=== PATIENT | male | born 1950 | race Caucasian/White ===

== ENCOUNTER 2017-11-26 19:44 | Emergency (ER) | payer MEDICARE, OTHER ==
[~2017-11-26] VITALS: Ht 170.2 cm; Wt 72.6 kg
--- NOTE | 2017-11-26 19:47 | NUR ---
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 PATIENT RECEIVED ON POST ICTAL, RESPONDS TO PAIN. PATIENT ON O2 VIA NON REBREATHER. SKIN IS WARM TO TOUCH AND NON DIAPHORETIC. PATIENT IS AFEBRILE. VSS. CONNECTED PT TO TELE MONITOR. SEIZURE PRECAUTION IMPLEMENTED.PATIENT RECEIVED ATIVAN 2MG PO- PER FAMILY.VSS
[2017-11-26 20:11] LABS: BASOPHILS # (AUTO) 0.2 /CMM (0.0-0.2); BASOPHILS % (AUTO) 3.3 % (0.0-2.0); EOSINOPHILS % (AUTO) 4.1 % (0.0-6.0); HEMATOCRIT 45 % (39-51); HEMOGLOBIN 15.5 g/dL (13.5-17.5); LYMPHOCYTES # (AUTO) 1.6 /CMM (0.8-4.8); LYMPHOCYTES % (AUTO) 23.3 % (20.0-44.0); MEAN CORPUSCULAR HGB CONC 35 g/dl (31.0-36.0); MEAN CORPUSCULAR VOLUME 90 fL (80-96); MONOCYTES # (AUTO) 0.6 /CMM (0.1-1.30); MONOCYTES % (AUTO) 8.8 % (2.0-12.0); NEUTROPHILS # (AUTO) 4.1 /CMM (1.8-8.9); NEUTROPHILS % (AUTO) 60.5 % (43.0-81.0); PLATELET COUNT (AUTO) 184 /CMM (150-450); RDW COEFFICIENT OF VARIATION 13.3 (11.5-15.0); RED BLOOD CELL COUNT(AUTO) 4.97 MIL/uL (4.5-6.0); WHITE BLOOD COUNT (AUTO) 6.8 K/uL (4.3-11.0)
--- NOTE | 2017-11-26 20:14 | NUR ---
EKG IN PROGRSS
--- NOTE | 2017-11-26 20:17 | NUR ---
PATIENT TO CT
[2017-11-26 20:23] LABS: CALCIUM, SERUM 8.9 mg/dL (8.5-10.1); CREATININE 1.7 mg/dL (0.6-1.3); POTASSIUM 4.1 mmol/L (3.5-5.1)
[2017-11-26 20:29] LABS: ALBUMIN 3.8 g/dL (3.4-5.0); BILIRUBIN,DIRECT 0.1 mg/dL (0.0-0.2); BILIRUBIN,TOTAL 0.3 mg/dL (0.2-1.0); TOTAL PROTEIN, SERUM 7.2 g/dL (6.4-8.2)
--- NOTE | 2017-11-26 22:20 | NUR ---
CALLED [facility] FOR TRANSPORT BACK TO [facility], ETA 1245AM, TRIP #[id number]
--- NOTE | 2017-11-26 23:07 | NUR ---
MADE AWARE OF BLOOD PRESSURE [phone]
--- NOTE | 2017-11-26 23:07 | NUR ---
PATIENT'S FAMILY AT BEDSIDE. AWARE OF PLAN OF CARE
--- NOTE | 2017-11-26 23:09 | NUR ---
AWAITING FOR AMBULANCE. PT'S FAMILY AWARE
--- NOTE | 2017-11-26 23:17 | NUR ---
PATIENT NOTED WITH EPISODE OF SEIZURE. MD REAL MADE AWARE, PLACED PT ON O2, REMAINS CONNECTED TO TELE, SEIZURE PRECAUTION OBSERVED.
[2017-11-26] MEDS ORDERED: LORAZEPAM INJ 2 MG/ML VIAL ONE (23:18)
--- NOTE | 2017-11-26 23:19 | NUR ---
ATIVAN IV ORDERED BY MD BUNN
[2017-11-27] MEDS ORDERED: LACOSAMIDE 50 MG TABLET PO STA (00:06)
--- NOTE | 2017-11-27 00:08 | NUR ---
REPORT GIVEN TO [facility] EMT. IV removed. Catheter intact and site benign. Pressure and 4x4 applied to site. No bleeding noted. Patient discharged to home in stable condition. Written and verbal after care instructions given. Patient verbalizes understanding of instruction AND RX. PT LEFT VIA [facility]. VSS.
[2017-11-27 00:10] VITALS: BP 152/83
== END 2017-11-27 00:13 | disposition home or self-care (01) ==
LOC: ER 19:45
DX: R56.9 Unspecified convulsions (principal); G93.89 Other specified disorders of brain
CPT/HCPCS: 36415; 70450-TC; 71045-TC; 80048-TC; 80076-TC; 85025-TC; A4606; J2060; Z7610

== ENCOUNTER 2019-05-16 13:10 | Outpatient (CLI) | payer MEDICARE, OTHER | END 2019-05-16 23:59 | disposition home or self-care (01) | LOC: WOU 13:10 | PROVIDERS: ATTEND Podiatrist Foot & Ankle Surgery | DX: L97.522 Non-pressure chronic ulcer of other part of left foot with fat layer exposed (principal); L84 Corns and callosities; B35.1 Tinea unguium; R60.0 Localized edema; R53.1 Weakness; E78.5 Hyperlipidemia, unspecified; I10 Essential (primary) hypertension; Z79.82 Long term (current) use of aspirin; Z79.899 Other long term (current) drug therapy; M79.675 Pain in left toe(s); M79.674 Pain in right toe(s); M20.40 Other hammer toe(s) (acquired), unspecified foot | CPT/HCPCS: 11042 ==

== ENCOUNTER 2019-05-23 12:35 | Outpatient (CLI) | payer MEDICARE, OTHER | END 2019-05-23 23:59 | disposition home or self-care (01) | LOC: WOU 12:35 | PROVIDERS: ATTEND Podiatrist Foot & Ankle Surgery | DX: L97.522 Non-pressure chronic ulcer of other part of left foot with fat layer exposed (principal); M20.41 Other hammer toe(s) (acquired), right foot; L84 Corns and callosities; M20.11 Hallux valgus (acquired), right foot; Z79.82 Long term (current) use of aspirin | CPT/HCPCS: 11042 ==

== ENCOUNTER → 2019-05-30 | Outpatient (CLI) | payer MEDICARE, OTHER | END | disposition home or self-care (01) | LOC: WOU 13:20 | PROVIDERS: ATTEND Podiatrist Foot & Ankle Surgery | DX: L84 Corns and callosities (principal); M79.672 Pain in left foot; M20.42 Other hammer toe(s) (acquired), left foot; Z86.31 Personal history of diabetic foot ulcer | CPT/HCPCS: 11042; G0463 ==

== ENCOUNTER 2019-07-11 13:35 | Outpatient (CLI) | payer MEDICARE, OTHER | END 2019-07-11 23:59 | disposition home or self-care (01) | LOC: WOU 13:35 | PROVIDERS: ATTEND Podiatrist Foot & Ankle Surgery | DX: L84 Corns and callosities (principal); M20.42 Other hammer toe(s) (acquired), left foot; M79.672 Pain in left foot | CPT/HCPCS: G0463 ==